=== PATIENT | male | born 1975 | race Two or more races ===

== ENCOUNTER 2020-02-09 18:17 | Emergency (ER) | payer MEDICAID ==
[~2020-02-09] VITALS: Ht 167.6 cm; Wt 82.0 kg
[2020-02-09] MEDS ORDERED: IBUPROFEN 600MG TABLET PO STA (19:23)
[2020-02-09] MEDS ORDERED: MAGNESIUM/ALUMINUM HYDROXIDE/SIMETHICONE 30ML UDC PO STA (19:23)
[2020-02-09 20:09] LABS: BASOPHILS % 0.4 % (0.0-2.0); EOSINOPHILS % 0.2 % (0.0-5.0); HEMATOCRIT. 42.8 % (42.0-52.0); HEMOGLOBIN. 14.8 g/dL (14.0-18.0); LYMPHOCYTES % 9.3 % (20.0-50.0); MEAN CORPUSCULAR HEMOGLOBIN 30.2 pg (28.0-32.0); MEAN CORPUSCULAR VOLUME 87.5 fL (80.0-94.0); MEAN PLATELET VOLUME 8.1 fl (7.4-10.4); MONOCYTES % 5.7 % (2.0-8.0); NEUTROPHILS % 84.4 % (40.0-76.0); PLATELET 245 x1000/uL (130-400); RED BLOOD CELL COUNT 4.89 mill/uL (4.7-6.1); RED CELL DISTRIBUTION WIDTH 13.4 % (11.6-14.6)
[2020-02-09] MEDS ORDERED: KETOROLAC 60MG/2ML VIAL IM ONE (20:15)
[2020-02-09 20:17] LABS: CHLORIDE 105 mEq/L (98-107)
[2020-02-09 20:34] LABS: CLARITY URINE CLOUDY (CLEAR); COLOR URINE YELLOW (YELLOW); KETONES URINE TRACE (NEGATIVE); LEUKOCYTE ESTERASE URINE NEGATIVE (NEGATIVE); NITRITE URINE NEGATIVE (NEGATIVE); OCCULT BLOOD URINE 3+ (NEGATIVE); PROTEIN URINE 1+ (NEGATIVE); SPECIFIC GRAVITY URINE 1.025 (1.005-1.030)
[2020-02-09 21:30] VITALS: BP 117/71
== END 2020-02-09 21:31 | disposition home or self-care (01) ==
LOC: ER 18:17
DX: N23 Unspecified renal colic (principal)
CPT/HCPCS: 36415; 74176; 80053; 81003; 83690; 85025; 96372; 99284; J1885

== ENCOUNTER 2024-01-05 17:35 | Emergency (ER) | payer MEDICAID ==
[~2024-01-05] VITALS: Ht 167.6 cm; Wt 81.8 kg
[2024-01-05 17:38] VITALS: O2SAT 98
[2024-01-05 17:59] LABS: BASOPHILS % 0.6 % (0.0-2.0); EOSINOPHILS % 0.5 % (0.0-5.0); HEMATOCRIT. 43.3 % (42.0-52.0); HEMOGLOBIN. 14.8 g/dL (14.0-18.0); LYMPHOCYTES % 38.3 % (20.0-50.0); MEAN CORPUSCULAR HEMOGLOBIN 30.2 pg (28.0-32.0); MEAN CORPUSCULAR HGB CONC 34.2 g/dL (31.0-37.0); MEAN CORPUSCULAR VOLUME 88.4 fL (80.0-94.0); MEAN PLATELET VOLUME 7.9 fl (7.4-10.4); MONOCYTES % 8.2 % (2.0-8.0); NEUTROPHILS % 52.4 % (40.0-76.0); PLATELET 254 x1000/uL (130-400); RED CELL DISTRIBUTION WIDTH 13.9 % (11.6-14.6); WHITE BLOOD COUNT 7.1 x1000/uL (4.5-11.0)
[2024-01-05 18:17] LABS: TROPONIN I HIGH SENSITIVITY < 4 ng/L (3.0-53)
[2024-01-05] MEDS ORDERED: NAP5EC MT (20:45)
[2024-01-05 23:09] VITALS: BP 148/69; PULSE 98; RESP 18; TEMP 98.7
== END 2024-01-05 23:11 | disposition home or self-care (01) ==
LOC: ER 17:35
DX: R07.89 Other chest pain (principal); F41.9 Anxiety disorder, unspecified; Z87.891 Personal history of nicotine dependence
CPT/HCPCS: 36415; 71045; 83880; 84484; 85025; 93005; 99285

== ENCOUNTER 2025-08-19 20:42 | Emergency (ER) | payer MEDICAID ==
[~2025-08-19] VITALS: Ht 170.2 cm; Wt 79.0 kg
[~2025-08-19 20:42] MED LIST: NAPR-1495 MT
[2025-08-19 20:49] VITALS: O2SAT 100
[2025-08-19 21:23] VITALS: BP 148/99; PULSE 85; RESP 16; TEMP 37; O2SAT 99
[2025-08-19] MEDS ORDERED: IBUP-1455 MT (23:04)
== END 2025-08-19 23:25 | disposition home or self-care (01) ==
LOC: ER 20:42
DX: M79.645 Pain in left finger(s) (principal); Z79.899 Other long term (current) drug therapy
CPT/HCPCS: 73140; 99283